=== PATIENT | female | born 1965 | race Caucasian/White ===

== ENCOUNTER → 2016-11-09 | Outpatient (CLI) | payer BC ==
[~2016-11-09] MED LIST: BUPR75TA8 PO; HYDR-4079 PO; LACT1CAP6 PO; LEVE500T26 PO; PANT40TA PO; STLS PO; TAPE75TA2 PO; VENL150C PO
--- NOTE | 2016-11-09 15:49 | MAMMOGRAPHY REPORT ---
BILATERAL DIGITAL SCREENING MAMMOGRAM TOMOSYNTHESIS WITH CAD: 11/09/2016 CLINICAL HISTORY: Routine screening. Patient has no complaints. TECHNIQUE: Breast tomosynthesis in addition to standard 2D mammography was performed. Current study was also evaluated with a Computer Aided Detection (CAD) system. COMPARISON: Comparison is made to exams dated: 11/02/2014 mammogram, 11/08/2015 mammogram, 09/11/2013 tawanna mogram, 08/22/2012 mammogram, 08/03/2011 mammogram, and 07/25/2010 mammogram - [facility] er. BREAST COMPOSITION: There are scattered areas of fibroglandular density in both breasts. FINDINGS: No suspicious masses, calcifications, or areas of architectural distortion are noted in ei ther breast. There has been no significant interval change compared to prior exams. IMPRESSION: ACR BI-RADS CATEGORY 1: NEGATIVE There is no mammographic evidence of malignancy. A 1 year screening mammogram is recommended. The pa tient will receive written notification of the results. Approximately 10% of breast cancers are not detected with mammography. A negative mammographic report should not delay biopsy if a clinically suggestive mass is present. Annette Ambriz M.D. ah/:11/09/2016 14:51:56 Library Media Specialist: Janelle MORTON(Millie)(M), [facility] letter sent: Normal 1/2 BI-RADS Code: ACR BI-RADS Category 1: Negative
== END | disposition home or self-care (01) ==
LOC: C.MAMM 12:16
PROVIDERS: ATTEND Family Medicine
DX: Z12.31 Encounter for screening mammogram for malignant neoplasm of breast (principal)

== ENCOUNTER 2017-10-01 01:06 | Emergency (ER) | payer BC, OTHER ==
[~2017-10-01] VITALS: Ht 154.9 cm; Wt 85.7 kg
[~2017-10-01 01:06] MED LIST changes: -VENL150C PO; +VENL150C71 PO
[2017-10-01 01:11] VITALS: TEMP 37.2; Ht 154.9 cm; Wt 85.7 kg
[2017-10-01] MEDS ORDERED: KETOROLAC TROMETHAMINE 30 MG/ML VIAL IV STA (01:20)
[2017-10-01] MEDS ORDERED: ONDANSETRON INJ 2 MG/ML 2 ML VIAL IV STA (01:20)
[2017-10-01] MEDS ORDERED: HYDROmorphone INJ 0.5 MG/0.5 ML SYR IV PRN (01:30)
[2017-10-01 01:43] LABS: BASO % 0.1 %; BASO ABS # 0.02 K/uL (0-0.2); EOS % 0.7 %; HEMATOCRIT 38.9 % (37-47); HEMOGLOBIN 13.2 g/dL (12.0-16.0); IG# 0.03 K/uL (0.00-0.02); LYMPH % 18.8 %; LYMPH ABS # 2.69 K/uL (1.2-3.4); MEAN CORPUSCULAR HEMOGLOBIN 30.2 pg (25-34); MEAN CORPUSCULAR HGB CONC 33.9 g/dl (32-36); MONO % 5.9 %; MONO ABS # 0.84 K/uL (0.11-0.59); NEUT % 74.3 %; NEUT ABS # 10.63 K/uL (1.4-6.5); PLATELET COUNT 208 K/uL (130-400); RED CELL DISTRIBUTION WIDTH CV 12.9 % (11.5-14.5); RED CELL DISTRIBUTION WIDTH SD 41.5 fL (36.4-46.3); WHITE BLOOD COUNT 14.31 K/uL (4.8-10.8)
[2017-10-01 02:05] LABS: ALKALINE PHOSPHATASE 92 U/L (45-117); ALT/SGPT 64 U/L (12-78); AST/SGOT 42 U/L (15-37); BLOOD UREA NITROGEN 19 mg/dl (7-18); CALCIUM 8.9 mg/dl (8.5-10.1); CARBON DIOXIDE 22 mmol/L (21-32); CREATININE 0.96 mg/dl (0.60-1.20); GLUCOSE 113 mg/dl (70-99); LIPASE 96 U/L (73-393); POTASSIUM 4.1 mmol/L (3.5-5.1); SODIUM 137 mmol/L (136-145)
[2017-10-01] MEDS ORDERED: CIPROFLOXACIN 500MG HOME PACK PO ONE (02:45)
[2017-10-01] MEDS ORDERED: CIPR-255 PO (02:53)
[2017-10-01] MEDS ORDERED: RANI150T2 PO (03:01)
[2017-10-01] MEDS ORDERED: EFFSR150 PO (03:02)
[2017-10-01] MEDS ORDERED: BUPR150T5 PO (03:02)
[2017-10-01] MEDS ORDERED: DOCU100C31 PO (03:03)
[2017-10-01] MEDS ORDERED: MULT-506 PO (03:03)
--- NOTE | 2017-10-01 03:09 | EMERGENCY ROOM VISIT NOTE ---
History Report prepared by Daniela: Joan Wilde Under the Supervision of: Dr. Naeem Kowalski M.D. First contact with patient: 01:17 Chief Complaint: FLANK PAIN Stated Complaint: FLANK PAIN History of Present Illness The patient is a 52 year old female who presents to the Emergency Room with complaints of sudden flank pain on the left side that started a few hours prior to arrival. The patient states the pain started as minor twinges in her left back 4-6 weeks ago, but she notes the pain has worsened over the past week and has wrapped around her side. She currently rates her pain an 8 out of 10, and she describes her pain as steady and dull. The patient also complains of dry mouth, some nausea, and difficulty taking deep breaths secondary to flank pain. The patient reports that she has not taken any pain medication. The patient denies falling or trauma to her left side. The patient has a history of endometriosis and had her right ovary removed. She notes she had similar pain when she had a cyst in her ovaries. Pt denies LOC, headache, fevers, chills, diaphoresis, visual changes, neck pain, chest pain, breathing difficulties, nausea, vomiting, midline or right-sided abdominal pain, back pain, melena, hematochezia, urinary symptoms, numbness, weakness, lymphadenopathy, rash, or other complaints. Source of History: patient Onset: a few hours prior to arrival Position: abdomen (flank) Symptom Intensity: 8/10 Quality: dull Timing: other (sudden) Associated Symptoms: + nausea Note: additional symptoms: dry mouth, difficulty taking deep breaths secondary to flank pain Review of Systems See HPI for pertinent positives and negatives. A total of ten systems were reviewed and were otherwise negative. Past Medical & Surgical Medical Problems: (1) Anxiety Disorder, Unspecified (2) Chronic pain in right foot (3) Endometriosis (4) Esophageal Reflux (5) Head ache (6) Major Depressive Disorder, Single Episode, Unspecified (7) Opioid Dependence-Unspec (8) Ovarian cyst (9) Tobacco Use Disorder Surgical Problems: (1) History of hysterectomy (2) History of right oophorectomy Family History No pertinent family history Social History Smoking Status: Current Every Day Smoker Alcohol Use: none, other Marital Status: Housing Status: lives with family Occupation Status: employed Current/Historical Medications Scheduled Bupropion Hcl (Bupropion Hcl Xl), 150 MG PO QAM Ciprofloxacin Hcl (Cipro), 500 MG PO BID Docusate Sodium (Docusate Sodium), 1 CAP PO DAILY Lactobacillus (Probiotic), 1 CAP PO DAILY Multivitamin (Multivitamin), 1 TAB PO DAILY Pantoprazole (Protonix), 40 MG PO QAM Ranitidine HCl (Ranitidine HCl), 150 MG PO HS Venlafaxine Hcl (Effexor Extended Rel), 150 MG PO DAILY Scheduled PRN Hydrocodone/Acetaminophen 10MG/325MG ([place] 10MG/325MG), 1-2 TABS PO Q6 PRN for Pain Allergies Coded Allergies: No Known Allergies (Verified , 10/01/17) Physical Exam Vital Signs Date Time Temp Pulse Resp B/P (MAP) Pulse Ox O2 Delivery O2 Flow Rate FiO2 10/01/17 03:18 104 18 115/70 95 Room Air 10/01/17 02:15 94 18 128/77 96 Room Air 10/01/17 01:11 37.2 101 20 168/89 96 Room Air Physical Exam GENERAL: Awake, alert, uncomfortable-appearing, in no distress HENT: Normocephalic, atraumatic. Oropharynx unremarkable. EYES: Normal conjunctiva. Sclera non-icteric. NECK: Supple. No nuchal rigidity. FROM. No masses. RESPIRATORY: Clear to auscultation. No wheezes. No rales. Normal respiratory effort. CARDIAC: Normal rate. Normal rhythm. No murmurs. No rubs. Extremities warm and well perfused. Pulses equal. No JVD. GI: Soft, non-distended. No rebound or guarding. No masses. Flank tenderness. RECTAL: Deferred. MUSCULOSKELETAL: Atraumatic. Chest examination reveals no tenderness. The back is symmetrical on inspection without obvious abnormality. Left CVA tenderness to palpation. No joint edema. LOWER EXTREMITIES: Calves are equal size bilaterally and non-tender. No edema. No discoloration. NEURO: Normal sensorium. No sensory or motor deficits noted. SKIN: No rash or jaundice noted. Medical Decision & Procedures ER Provider Diagnostic Interpretation: Radiology results as stated below per my review and radiologist interpretation: CT ABDOMEN & PELVIS Without Contrast: Comparison February 2011. No urinary tract calculi identified. There is asymmetric or infiltration around the left kidney and ureter with some increase density of uroepithelium suggested. There is mild left hydronephrosis along with mild distention of portions of the ureter. Findings may represent sequela of recently passed stone. Correlate for infection. Diverticulosis. No diverticulitis. No evidence for acute pancreatitis. No appendicitis. Nonspecific gastric distention. Gallbladder partially contracted. No bowel obstruction. Spinal stimulator, possible sebaceous cyst or other cystic lesion in the posterior right subcutaneous fat and other nonemergency/incidentals. Radiologist: Alexy Smith M.D. Laboratory Results 10/01/17 01:30 Red Blood Count 4.37, Mean Corpuscular Volume 89.0, Mean Corpuscular Hemoglobin 30.2, Mean Corpuscular Hemoglobin Concent 33.9, Mean Platelet Volume 11.0, Neutrophils (%) (Auto) 74.3, Lymphocytes (%) (Auto) 18.8, Monocytes (%) (Auto) 5.9, Eosinophils (%) (Auto) 0.7, Basophils (%) (Auto) 0.1, Neutrophils # (Auto) 10.63, Lymphocytes # (Auto) 2.69, Monocytes # (Auto) 0.84, Eosinophils # (Auto) 0.10, Basophils # (Auto) 0.02 10/01/17 01:30 Test 10/01/17 01:30 White Blood Count 14.31 K/uL (4.8-10.8) Red Blood Count 4.37 M/uL (4.2-5.4) Hemoglobin 13.2 g/dL (12.0-16.0) Hematocrit 38.9 % (37-47) Mean Corpuscular Volume 89.0 fL (80-100) Mean Corpuscular Hemoglobin 30.2 pg (25-34) Mean Corpuscular Hemoglobin Concent 33.9 g/dl (32-36) Platelet Count 208 K/uL (130-400) Mean Platelet Volume 11.0 fL (7.4-10.4) Neutrophils (%) (Auto) 74.3 % Lymphocytes (%) (Auto) 18.8 % Monocytes (%) (Auto) 5.9 % Eosinophils (%) (Auto) 0.7 % Basophils (%) (Auto) 0.1 % Neutrophils # (Auto) 10.63 K/uL (1.4-6.5) Lymphocytes # (Auto) 2.69 K/uL (1.2-3.4) Monocytes # (Auto) 0.84 K/uL (0.11-0.59) Eosinophils # (Auto) 0.10 K/uL (0-0.5) Basophils # (Auto) 0.02 K/uL (0-0.2) RDW Standard Deviation 41.5 fL (36.4-46.3) RDW Coefficient of Variation 12.9 % (11.5-14.5) Immature Granulocyte % (Auto) 0.2 % Immature Granulocyte # (Auto) 0.03 K/uL (0.00-0.02) Urine Color YELLOW Urine Appearance CLEAR (CLEAR) Urine pH 5.0 (4.5-7.5) Urine Specific [place] 1.020 (1.000-1.030) Urine Protein NEG (NEG) Urine Glucose (UA) NEG (NEG) Urine Ketones NEG (NEG) Urine Occult Blood NEG (NEG) Urine Nitrite NEG (NEG) Urine Bilirubin NEG (NEG) Urine Urobilinogen NEG (NEG) Urine Leukocyte Esterase NEG (NEG) Anion Gap 10.0 mmol/L (3-11) Est Creatinine Clear Calc Drug Dose 69.7 ml/min Estimated GFR () 79.9 Estimated GFR (Non- 69.0 BUN/Creatinine Ratio 19.8 (10-20) Calcium Level 8.9 mg/dl (8.5-10.1) Total Bilirubin 0.3 mg/dl (0.2-1) Direct Bilirubin < 0.1 mg/dl (0-0.2) Aspartate Amino Transf (AST/SGOT) 42 U/L (15-37) Alanine Aminotransferase (ALT/SGPT) 64 U/L (12-78) Alkaline Phosphatase 92 U/L (45-117) Total Protein 8.0 gm/dl (6.4-8.2) Albumin 4.0 gm/dl (3.4-5.0) Lipase 96 U/L (73-393) Human Chorionic Gonadotropin, Qual NEG (NEG) Laboratory results reviewed by me Medications Administered Medications (Trade) Dose Ordered Sig/Micaela Route Start Time Stop Time Status Last Admin Dose Admin Ketorolac Tromethamine (Toradol Inj) 10 mg NOW STAT IV 10/01/17 01:20 10/01/17 01:23 DC 10/01/17 01:33 10 MG Ondansetron HCl (Zofran Inj) 4 mg NOW STAT IV 10/01/17 01:20 10/01/17 01:23 DC 10/01/17 01:33 4 MG Hydromorphone HCl (Dilaudid Inj) 0.5 mg Q15M PRN IV 10/01/17 01:30 10/01/17 03:39 DC 10/01/17 01:34 0.5 MG Ciprofloxacin (Cipro 500MG Home Pack) 1 homepack UD ONCE PO 10/01/17 02:45 10/01/17 02:49 DC 10/01/17 03:09 1 HOMEPACK ED Course 0120: Ordered Zofran Inj 4 mg IV, Toradol Inj 10 mg IV. 0124: The patient was evaluated in room A4B. A complete history and physical exam was performed. 0245: Ordered Ciprofloxacin 1 homepack PO. 0301: I reevaluated the patient. Discussed results and discharge instructions: She verbalized understanding and agreement. The patient is ready for discharge. Medical Decision Prior records/ancillary studies reviewed. Triage Nursing notes reviewed and agree them. Additional history obtained from the family. The patient's history was concerning for flank and abdominal pain. Differential diagnosis: Etiologies such as renal colic, appendicitis, diverticulitis, mesenteric ischemia, aortic pathology, infections, inflammatory bowel disease, PUD, biliary pathology, UTI, as well as others were entertained. Physical examination findings: As above. ER treatment provided: IV Zofran IV Toradol IV Dilaudid On reassessment the patient felt better. Oral Cipro Diagnostic interpretation by me: The labs revealed a mild leukocytosis on CBC. Chemistry panel was unremarkable.. Urinalysis was rather unremarkable. Urine culture pending. Imaging studies: CT of the abdomen and pelvis as above. The patient had some inflammatory change around the left kidney. She has left flank pain. She may have passed a stone however she may also have an infection. A culture was performed. Her urinalysis was rather unremarkable. She will be covered with Cipro pending the culture results. The patient has pain medication at home. She is feeling significantly better at this point time. I discussed conservative management with her and her . They felt very comfortable. I gave my usual and customary discussion regarding this issue. By the evaluation outlined above emergent etiologies such as appendicitis, diverticulitis, mesenteric ischemia, aortic pathology, infections, inflammatory bowel disease, PUD, biliary pathology, as well as others were deemed relatively unlikely. The patient and were informed about the findings as listed above. All questions were answered and they were pleased with the treatment. Return instructions were outlined and the patient was discharged in stable condition. Outpatient prescription management: Oxy IR 5mg 1-2 po Q4 hrs prn Referral: The patient was referred back to her primary care physician for follow-up in 2 to 3 days for a recheck of the current condition. Medication Reconcilliation Current Medication List: was personally reviewed by me Blood Pressure Screening Patient's blood pressure: Normal blood pressure Blood pressure disposition: Did not require urgent referral Impression Primary Impression: Left flank pain Scribe Attestation The scribe's documentation has been prepared under my direction and personally reviewed by me in its entirety. I confirm that the note above accurately reflects all work, treatment, procedures, and medical decision making performed by me. Departure Information Dispostion Home / Self-Care Prescriptions Ciprofloxacin Hcl (CIPRO) 500 Mg Tab 500 MG PO BID, #12 TAB Prov: Naeem Kowalski MD 10/01/17 Referrals No Doctor, Assigned (PCP) Forms HOME CARE DOCUMENTATION FORM, IMPORTANT VISIT INFORMATION Patient Instructions My [facility] Additional Instructions No driving today due to pain medication received in the ER. Continue your current pain medication at home. Ciprofloxacin 500mg: Take one pill twice daily for 7 days. All antibiotics can cause diarrhea. If this occurs and you feel worse or it does not resolve in 1-2 days follow up with your doctor or return to the Emergency Department as this could be signs of serious underlying problems. Any medication can cause an allergic reaction or complication, stop the pills immediately and return to the ER for rash, hives, breathing difficulties, tendon pain, tendon injury, or swelling. Ibuprofen(Motrin, Advil) may be used for fever or pain. Use 600mg every six hours as needed. Take with food. Avoid using more than 2400mg in a 24 hour period. Do not use 2400mg per day for more than three consecutive days without physician direction. Prolonged inappropriate use can lead to stomach upset or ulcers. This medication can be taken if you need to drive, work, or perform activities which may be dangerous when taking narcotic pain medication. (AND/OR) Acetaminophen(Tylenol) may be used for fever or pain. Use 1000mg every six hours as needed. Avoid using more than 4000mg in a 24 hour period. This medication can be taken if you need to drive, work, or perform activities which may be dangerous when taking narcotic pain medication. Rest and avoid strenuous activity until your symptoms resolve. Drink plenty of fluids. Return to the ER for worsening abdominal or back pain, vomiting, fevers, passing out, or as needed. Follow-up with your primary care physician in 2 to 3 days for a recheck of your current condition.
[2017-10-01 03:18] VITALS: BP 115/70; PULSE 104; O2SAT 95
--- NOTE | 2017-10-01 06:39 | DIAGNOSTIC IMAGING REPORT ---
CT SCAN OF THE ABDOMEN AND PELVIS WITHOUT CONTRAST CLINICAL HISTORY: left flank pain COMPARISON STUDY: 02/09/2011 TECHNIQUE: CT scan of the abdomen and pelvis was performed from the lung bases to the proximal femurs. Images are reviewed in the axial, sagittal, and coronal planes. IV contrast was not administered for this examination. A dose lowering technique was utilized adhering to the principles of ALARA. CT DOSE: 1452.77 mGy.cm FINDINGS: Lower chest: The heart is normal in size and configuration, without pericardial effusion. The lung bases and pleural spaces are clear. Liver: The unenhanced liver is normal in size, contour, and attenuation. There is no intrahepatic biliary ductal dilatation. Gallbladder: Unremarkable. Spleen: Normal in size and attenuation. Pancreas: Unremarkable. Adrenal glands: Unremarkable. Kidneys: There is left-sided hydronephrosis and perinephric stranding. No renal, ureteral, or bladder calculi are visualized. The findings may indicate a recently passed calculus. A radiolucent calculus or other cause of renal obstruction cannot be excluded. Clinical follow-up is advocated. Bowel: There are no transition zones indicate bowel obstruction. The appendix appears normal. There is scattered stool the colon. There is no acute diverticulitis. Peritoneum: There is no intraperitoneal free air or abdominal ascites. Vasculature: The abdominal aorta is normal in course and caliber. Adenopathy: None. Pelvic viscera: The uterus is surgically absent. An intraspinal catheter and right posterior control device are visualized. Skeletal structures: No destructive osseous lesions are seen. There is a soft tissue nodule within the subcutaneous tissues of the right back likely representing a sebaceous cyst. IMPRESSION: 1. No evidence of bowel obstruction. No evidence of free air 2. Normal appendix. No evidence of acute diverticulitis. 3. Left-sided hydronephrosis and left perinephric stranding. No calculus is visualized. While likely representing a recently passed calculus, a radiolucent calculus or other cause of renal obstruction cannot be excluded. Clinical follow-up is advocated. Electronically signed by: Monty Lopes M.D. 10/01/2017 6:37 AM Dictated Date/Time: 10/01/2017 6:32 AM
== END 2017-10-01 03:20 | disposition home or self-care (01) ==
LOC: C.EDB 01:07 → C.EDA 03:20
DX: R10.9 Unspecified abdominal pain (principal); R11.0 Nausea; R06.02 Shortness of breath; F41.8 Other specified anxiety disorders; F17.200 Nicotine dependence, unspecified, uncomplicated; Z79.899 Other long term (current) drug therapy